=== PATIENT | female | born 1965 | race Caucasian/White ===

== ENCOUNTER 2018-01-09 13:02 | Outpatient (CLI) | payer OTHER | END 2018-01-09 13:08 | disposition home or self-care (01) | LOC: SONOGRAMA 13:02 | DX: E04.1 Nontoxic single thyroid nodule (principal) ==

== ENCOUNTER 2019-09-10 09:40 | Outpatient (CLI) | payer OTHER | END 2019-09-10 10:08 | disposition home or self-care (01) | LOC: SONOGRAMA 09:40 | DX: E04.2 Nontoxic multinodular goiter (principal) ==